=== PATIENT | male | born 1995 | race Caucasian/White ===

== ENCOUNTER 2017-06-21 18:00 | Observation (INO) | payer OTHER ==
[~2017-06-21] VITALS: Ht 180.3 cm; Wt 64.5 kg
[2017-06-21 19:01] LABS: BASO # 0.1 (0.0-0.2); BASO % 0.3 % (0.0-2.0); EOS % 0.1 % (0-4.0); GRAN # 15.4 (1.4-6.5); GRAN % 81.3 % (42.2-75.2); HEMATOCRIT 43.6 % (36.0-47.0); HEMOGLOBIN 15.2 g/dl (12.5-16.1); LYMPH % 10.7 % (20.0-51.0); MEAN CELL VOLUME 87 fl (80.0-95.0); MEAN CORPUSCULAR HEMOGLOBIN 30 pg (26.0-32.0); MEAN CORPUSCULAR HGB CONC 35 g/dl (33.0-37.0); MEAN PLATELET VOLUME 8.9 fl (7.4-10.4); MONO # 1.4 (0.1-0.6); MONO % 7.2 % (1.7-9.3); PLATELET COUNT 288 K/mm3 (130-400); RED BLOOD COUNT 5.02 M/mm3 (4.20-5.60); REDCELL DISTRIBUTION WIDTH-CV 11.8 % (11.5-14.5)
[2017-06-21 19:05] LABS: COLLECTION METHOD CLEAN CATCH
[2017-06-21 19:15] LABS: MUCOUS Present /lpf; PH 6 (5-8); SQUAMOUS EPITHELIAL 0-2 /hpf; URINE APPEARANCE Clear; URINE BACTERIA None Seen /hpf; URINE BILIRUBIN Negative (NEGATIVE); URINE BLOOD Negative (NEGATIVE); URINE COLOR Yellow; URINE GLUCOSE 2+ (NEGATIVE); URINE KETONE 2+ (NEGATIVE); URINE LEUKOCYTE ESTERASE Negative (NEGATIVE); URINE NITRATE Negative (NEGATIVE); URINE PROTEIN(semi-quant) Negative (NEGATIVE); URINE RBC 0-2 /hpf; URINE UROBILINOGEN Negative (NEGATIVE)
[2017-06-21] MEDS ORDERED: NOVOLOG 100U100 U/M1 SQ (19:29)
[2017-06-21 19:43] LABS: ALBUMIN 4.7 gm/dL (3.5-5.0); BILIRUBIN,TOTAL 1.2 mg/dL (0.0-1.0); C-REACTIVE PROTEIN 2.6 mg/dL (0.0-0.9); CALCIUM 9.3 mg/dL (8.4-10.2); CREATININE, serum 0.78 mg/dL (0.66-1.25); POTASSIUM 3.8 mmol/L (3.4-5.0); TOTAL PROTEIN 7.7 gm/dL (6.4-8.2)
[2017-06-21 23:02] VITALS: BP 110/46; PULSE 76
[2017-06-21 23:17] VITALS: BP 101/39; PULSE 79
[2017-06-21 23:32] VITALS: BP 115/48; PULSE 75
[2017-06-21 23:47] VITALS: BP 110/47; PULSE 71; TEMP 97.1
[2017-06-22 00:17] VITALS: BP 111/56; PULSE 69
[2017-06-22 00:47] VITALS: BP 118/53; PULSE 69
[2017-06-22 01:47] VITALS: BP 113/48; PULSE 72
[2017-06-22 02:47] VITALS: BP 109/43; PULSE 75
[2017-06-22 05:20] VITALS: BP 110/48; PULSE 89; TEMP 98.3
[2017-06-22 09:51] VITALS: BP 104/45; PULSE 64; TEMP 99
== END 2017-06-22 10:50 | disposition home or self-care (01) ==
LOC: COL.ER 18:00 → SURG 20:43
PROVIDERS: Family Medicine
DX: K35.80 Unspecified acute appendicitis (principal); E11.9 Type 2 diabetes mellitus without complications; Z79.4 Long term (current) use of insulin
CPT/HCPCS: J0171; J1170; J2405; J2543; J2704; J3010; J7030; J7050; J7120; Q9967

== ENCOUNTER → 2021-03-01 | Outpatient (CLI) | payer OTHER ==
[~2021-03-01] MED LIST: NOVOLOG 100U100 U/M1 SQ
== END ==
LOC: DIA.ED 08:53
DX: E10.65 Type 1 diabetes mellitus with hyperglycemia (principal)
CPT/HCPCS: G0108